=== PATIENT | female | born 1955 | race Caucasian/White ===

== ENCOUNTER → 2017-04-21 | Outpatient (CLI) | payer MEDICARE | LOC: HEART 5 04-20 09:00 | DX: Z01.810 Encounter for preprocedural cardiovascular examination (principal); I20.9 Angina pectoris, unspecified; I34.0 Nonrheumatic mitral (valve) insufficiency; R94.31 Abnormal electrocardiogram [ECG] [EKG] | CPT/HCPCS: 78452; A9502; J2785 ==

== ENCOUNTER → 2017-04-22 | Outpatient (CLI) | payer OTHER | LOC: LAB 12:18 | DX: K52.9 Noninfective gastroenteritis and colitis, unspecified (principal) | CPT/HCPCS: 36415; 86316 ==

== ENCOUNTER 2021-01-21 15:04 | Emergency (ER) | payer MEDICARE, OTHER ==
[~2021-01-21 15:04] MED LIST: NAPROSYN EC 37375 MG PO; NORFLEX 100 MG100 MG PO
== END 2021-01-21 15:34 | disposition left against medical advice (07) ==
LOC: ER1 15:04
DX: Z53.21 Procedure and treatment not carried out due to patient leaving prior to being seen by health care provider (principal)
CPT/HCPCS: 93005

== ENCOUNTER → 2021-12-18 | Outpatient (CLI) | payer MEDICARE, OTHER ==
[~2021-12-18] VITALS: Ht 152.4 cm; Wt 117.9 kg
== END ==
LOC: EROP 13:21
DX: U07.1 COVID-19 (principal); Z23 Encounter for immunization; I10 Essential (primary) hypertension
CPT/HCPCS: M0247; Q0247

== ENCOUNTER → 2022-03-05 | Outpatient (CLI) | payer MEDICARE, OTHER ==
[~2022-03-05] MED LIST changes: +ASPIRIN81 MG PO; +CELEXA 20MG TAB20 MG PO; +CEPHALEXIN500 MG PO; +CETIRIZINE HCL10 MG PO; +CLEOCIN HCL300 MG PO; +COZAAR 25MG TAB25 MG PO; +CRESTOR 10 MG T10 MG PO; +DITROPAN 5 MG TA5 MG PO; +DULERA 200 MCG8.8 GM INH; +GABAPENTIN100 MG PO; +IBUPROFEN800 MG PO; +LEVOTHYROXINE25 MCG PO; +LIPITOR TAB 2020 MG PO; +MONTELUKAST SOD10 MG PO; +NITROSTAT 0.40.4 MG SL; +PROAIR HFA8.5 GM INH; +PROVENTIL HFA6.7 GM INH; +STOOL SOFTENER100 MG PO; +VITAMIN B-12100 MCG PO; +VITAMIN D3125 MCG PO
[2022-03-05 15:01] LABS: HEMOGLOBIN 12.5 gm/dl (12.3-15.3); RED BLOOD COUNT 4.31 M/UL (4.00-5.10); WHITE BLOOD COUNT 6.6 K/UL (4.5-11.0)
[2022-03-05 15:20] LABS: BUN/CREATININE RATIO 26 (0-10)
== END ==
LOC: LAB 14:23
PROVIDERS: Internal Medicine Cardiovascular Disease
DX: I47.2 Ventricular tachycardia (principal); I49.5 Sick sinus syndrome; Z20.822 Contact with and (suspected) exposure to COVID-19
CPT/HCPCS: 36415; 71045; 80048; 85025; U0003

== ENCOUNTER 2022-03-07 07:42 | Outpatient (CLI) | payer MEDICARE, OTHER ==
[~2022-03-07] VITALS: Ht 152.4 cm; Wt 113.9 kg
[~2022-03-07 07:42] MED LIST changes: -ASPIRIN81 MG PO; -CELEXA 20MG TAB20 MG PO; -CEPHALEXIN500 MG PO; -CETIRIZINE HCL10 MG PO; -CLEOCIN HCL300 MG PO; -COZAAR 25MG TAB25 MG PO; -CRESTOR 10 MG T10 MG PO; -DITROPAN 5 MG TA5 MG PO; -DULERA 200 MCG8.8 GM INH; -GABAPENTIN100 MG PO; -IBUPROFEN800 MG PO; -LEVOTHYROXINE25 MCG PO; -LIPITOR TAB 2020 MG PO; -MONTELUKAST SOD10 MG PO; -NITROSTAT 0.40.4 MG SL; -PROAIR HFA8.5 GM INH; -PROVENTIL HFA6.7 GM INH; -STOOL SOFTENER100 MG PO; -VITAMIN B-12100 MCG PO; -VITAMIN D3125 MCG PO
[2022-03-07] MEDS ORDERED: PROVENTIL HFA6.7 GM INH (08:53)
[2022-03-07] MEDS ORDERED: LEVOTHYROXINE25 MCG PO (08:54)
[2022-03-07] MEDS ORDERED: GABAPENTIN100 MG PO (08:54)
[2022-03-07] MEDS ORDERED: MONTELUKAST SOD10 MG PO (08:55)
[2022-03-07] MEDS ORDERED: COZAAR 25MG TAB25 MG PO (08:56)
[2022-03-07] MEDS ORDERED: CELEXA 20MG TAB20 MG PO (08:56)
[2022-03-07] MEDS ORDERED: CRESTOR 10 MG T10 MG PO (08:57)
[2022-03-07] MEDS ORDERED: CETIRIZINE HCL10 MG PO (08:58)
[2022-03-07] MEDS ORDERED: ASPIRIN81 MG PO (08:59)
[2022-03-07] MEDS ORDERED: LIPITOR TAB 2020 MG PO (09:01)
[2022-03-07] MEDS ORDERED: IBUPROFEN800 MG PO (09:02)
[2022-03-07] MEDS ORDERED: DULERA 200 MCG8.8 GM INH (09:05)
[2022-03-07] MEDS ORDERED: DITROPAN 5 MG TA5 MG PO (09:07)
[2022-03-07] MEDS ORDERED: NITROSTAT 0.40.4 MG SL (09:07)
[2022-03-07] MEDS ORDERED: PROAIR HFA8.5 GM INH (09:08)
[2022-03-07] MEDS ORDERED: STOOL SOFTENER100 MG PO (09:09)
[2022-03-07] MEDS ORDERED: VITAMIN B-12100 MCG PO (09:10)
[2022-03-07] MEDS ORDERED: VITAMIN D3125 MCG PO (09:11)
[2022-03-07] MEDS ORDERED: CEPHALEXIN500 MG PO (13:26)
[2022-03-07] MEDS ORDERED: CLEOCIN HCL300 MG PO (13:26)
--- NOTE | 2022-03-07 16:46 | NUR ---
PT SURG SITES X 2 CDI. LEFT CHEST WITH BULKY DRESSING AND SLING/SWATH ON. PT RIGHT GROIN FIGURE 8 REMOVED AT 1600 PER MD ORDERS. MANUAL PRESSURE HELD X5 MINUTES. SITE COVERED WITH 4X4 AND TEGADERM. NO BLEEDING NOTED. SITE WNL. PT TOLERATED WELL. WCTM.
== END 2022-03-08 10:05 | disposition home or self-care (01) ==
LOC: CATH 07:42 → PROG CARE 15:25 → CATH 03-08 10:05
DX: I49.5 Sick sinus syndrome (principal); I47.2 Ventricular tachycardia; J45.40 Moderate persistent asthma, uncomplicated; E66.01 Morbid (severe) obesity due to excess calories; G47.33 Obstructive sleep apnea (adult) (pediatric); M06.9 Rheumatoid arthritis, unspecified; E78.00 Pure hypercholesterolemia, unspecified; Z20.822 Contact with and (suspected) exposure to COVID-19; Z88.1 Allergy status to other antibiotic agents; Z88.5 Allergy status to narcotic agent; Z88.2 Allergy status to sulfonamides; Z79.82 Long term (current) use of aspirin
CPT/HCPCS: 33208; 71045; 82962; 93005; 93620; 94664; 94760; 99152; 99153; C1730; C1766; C1785; C1898; J0360; J1644; J2250; J3010; J3370; J7040; J7070